=== PATIENT | male | born 1970 | race African-American/Black ===

== ENCOUNTER 2016-08-09 18:29 | Emergency (ER) | payer BC ==
[2016-08-10] MEDS ORDERED: PREDNISONE PO (12:23)
[2016-08-10] MEDS ORDERED: PAIN PILL PO (12:24)
[2016-08-10] MEDS ORDERED: ANTIBIOTIC (12:24)
[2016-08-11] MEDS ORDERED: AUGMENTIN875 MG PO (07:34)
[2016-08-13] MEDS ORDERED: HYDROCODON-ACE1 EAC9 PO (10:35)
[2016-08-13] MEDS ORDERED: COLACE PO (10:35)
[2016-08-13] MEDS ORDERED: KEFLEX500 MG PO (10:36)
== END 2016-08-09 18:35 | disposition home or self-care (01) ==
LOC: CFTX 18:29
DX: K62.89 Other specified diseases of anus and rectum (principal)
CPT/HCPCS: 99282